=== PATIENT | male | born 1975 | race Caucasian/White ===

== ENCOUNTER → 2018-12-23 14:58 | Outpatient (CLI) | payer MEDICARE, SELFPAY ==
--- NOTE | 2018-12-23 15:03 | XR_ITS ---
PROCEDURE: XR CHEST 2V CLINICAL HISTORY: HTN Heart palpitations, fatigue COMPARISON: No exams were available for comparison FINDINGS: The cardiomediastinal silhouette and pulmonary vascularity are within normal limits. The lungs are clear without infiltrates, suspicious nodules, or pleural effusions. Calcified nodes are present in the left hilum. No acute bony findings. IMPRESSION: No acute findings. Dictated by: Sid Chery MD 12/23/2018 17:32 Electronically signed by Sid Chery MD in [place] 12/23/2018 17:32
== END ==
PROVIDERS: PCP Family Medicine; Visit Provider Family Medicine
DX: R53.83 Other fatigue (principal); E11.9 Type 2 diabetes mellitus without complications
CPT/HCPCS: 71046

== ENCOUNTER → 2019-01-17 13:07 | Outpatient (CLI) | payer MEDICARE, SELFPAY | PROVIDERS: PCP Family Medicine; Visit Provider Family Medicine | DX: G47.33 Obstructive sleep apnea (adult) (pediatric) (principal); R06.83 Snoring; I10 Essential (primary) hypertension | CPT/HCPCS: G0399 ==